=== PATIENT | male | born 1965 | race Caucasian/White ===

== ENCOUNTER 2019-08-02 10:47 | Day surgery (SDC) | payer OTHER ==
[2019-08-02 11:40] VITALS: TEMP 98.9; BMI 28.8
[2019-08-02 14:17] VITALS: BP 135/92; PULSE 69
== END 2019-08-02 16:13 | disposition home or self-care (01) ==
LOC: JASU-ENDO 10:47
PROVIDERS: ATTEND Internal Medicine Gastroenterology
PROC: 0DJD8ZZ Inspection of Lower Intestinal Tract, Via Natural or Artificial Opening Endoscopic (ICD-10-PCS; principal; 2019-08-02 12:30)
DX: Z12.11 Encounter for screening for malignant neoplasm of colon (principal); K64.8 Other hemorrhoids